=== PATIENT | female | born 1970 | race Caucasian/White ===

== ENCOUNTER 2018-01-02 07:50 | Day surgery (SDC) | payer OTHER, MEDICAID ==
[~2018-01-02 07:50] MED LIST: CEFAZOLIN 1 GM INJ
[2018-01-02] MEDS ORDERED: PROCHLORPERAZINE 10 MG INJ IV (09:00)
[2018-01-02] MEDS ORDERED: FENTAnyl 50 MCG/ML VIAL IV ×3 (09:00)
[2018-01-02] MEDS ORDERED: ONDANSETRON 4 MG INJ IV (09:00)
[2018-01-02] MEDS ORDERED: HYDROmorphONE 1 MG/5 ML IV SYRINGE IV ×3 (09:00)
[2018-01-02] MEDS ORDERED: DIPHENHYDRAMINE 50 MG INJ IV (09:00)
[2018-01-02] MEDS ORDERED: OXYCODONE/ACETAMINOPHEN (5/325) TAB PO (09:00)
[2018-01-02] MEDS ORDERED: MEPERIDINE 25 MG INJ IV (09:00)
[2018-01-02] MEDS ORDERED: MIDAZOLAM 1 MG/ML 2 ML INJ (09:12)
[2018-01-02] MEDS ORDERED: PROPOFOL 40 ML (09:26)
[2018-01-02] MEDS ORDERED: DEXAMETHASONE 4 MG/ML 1 ML INJ (09:26)
[2018-01-02] MEDS ORDERED: LIDOCAINE 2% (SDV) 5 ML INJ (09:26)
[2018-01-02] MEDS ORDERED: ONDANSETRON 4 MG INJ (09:26)
[2018-01-02] MEDS ORDERED: FENTAnyl 50 MCG/ML VIAL (09:26)
[2018-01-02] MEDS ORDERED: FAMOTIDINE 20 MG INJ (09:27)
[2018-01-02] MEDS ORDERED: EPHEDrine 25 MG/5 ML SYG (09:40)
== END 2018-01-02 11:05 | disposition home or self-care (01) ==
LOC: SDS 07:50
DX: D25.0 Submucous leiomyoma of uterus (principal); I10 Essential (primary) hypertension; E66.9 Obesity, unspecified; Z68.31 Body mass index [BMI] 31.0-31.9, adult
CPT/HCPCS: 58558; 71045; 88305; 93005